=== PATIENT | female | born 1950 | race Caucasian/White ===

== ENCOUNTER 2017-04-13 01:07 | Emergency (ER) | payer OTHER ==
[2017-04-13] MEDS: ATENOLOL 25 MG TAB PO (02:06)
[2017-04-13 02:20] LABS: ADD MAN DIFF? NO
[2017-04-13 02:26] LABS: BASOPHIL # 0.1 10^3/ul (0.0-0.1); BASOPHILS % 0.9 % (0.0-2.0); EOSINOPHILS # 0.1 10^3/ul (0.0-0.5); EOSINOPHILS % 1.5 % (0.0-7.0); HEMATOCRIT 38.8 % (37.0-47.0); HEMOGLOBIN 13.6 g/dl (12.0-16.0); LYMPHOCYTES # 3.3 10^3/ul (0.8-2.9); LYMPHOCYTES % 42.9 % (15.0-51.0); MEAN CORPUSCULAR HEMOGLOBIN 31.8 pg (29.0-33.0); MEAN CORPUSCULAR HGB CONC 35.1 g/dl (32.0-37.0); MEAN CORPUSCULAR VOLUME 90.7 fl (82.0-101.0); MEAN PLATELET VOLUME 9.3 fl (7.4-10.4); MONOCYTE # 0.9 10^3/ul (0.3-0.9); MONOCYTES % 11.4 % (0.0-11.0); NEUTROPHIL # 3.4 10^3/ul (1.6-7.5); NEUTROPHILS % 43.2 % (39.0-77.0); PLATELET COUNT 261 10^3/UL (140-415); RED BLOOD COUNT 4.28 10^6/ul (4.20-5.40); RED CELL DISTRIBUTION WIDTH 12.2 % (11.5-14.5)
[2017-04-13 02:26] LABS: WHITE BLOOD COUNT 7.8 10^3/ul (4.8-10.8)
[2017-04-13 02:41] LABS: INR 1.09; PROTIME 14.2 Sec (11.9-14.9); PT RATIO 1.1
[2017-04-13 02:42] LABS: PARTIAL THROMBOPLASTIN TIME 36.2 Sec (25.0-35.0)
[2017-04-13 02:52] LABS: ANION GAP 13 (8-16); BLOOD UREA NITROGEN 16 mg/dl (7-20); CALCIUM 9.7 mg/dl (8.4-10.2); CARBON DIOXIDE 25 mmol/L (21-31); CHLORIDE 107 mmol/L (97-110); CREATININE 0.75 mg/dl (0.44-1.00); GLUCOSE 105 mg/dl (70-220); POTASSIUM 3.8 mmol/L (3.5-5.1); SODIUM 141 mmol/L (135-144)
[2017-04-13] MEDS: SOD CHLORIDE 0.9% 1,000 ML IV (02:55)
[2017-04-13 03:02] LABS: B-TYPE NATRIURETIC PEPTIDE 205 PG/ML (0-125); TROPONIN-I < 0.012 ng/ml (0.00-0.12)
== END 2017-04-13 05:32 | disposition home or self-care (01) ==
LOC: E/R 01:07
DX: I48.91 Unspecified atrial fibrillation (principal); R40.2252 Coma scale, best verbal response, oriented, at arrival to emergency department; I25.10 Atherosclerotic heart disease of native coronary artery without angina pectoris; I10 Essential (primary) hypertension; R40.2142 Coma scale, eyes open, spontaneous, at arrival to emergency department; R40.2362 Coma scale, best motor response, obeys commands, at arrival to emergency department; Z98.61 Coronary angioplasty status; Z95.0 Presence of cardiac pacemaker; Z87.891 Personal history of nicotine dependence
CPT/HCPCS: 36415; 71045; 80048; 83880; 84443; 84484; 85025; 85610; 85730; 93005; 99285-25

== ENCOUNTER 2017-05-09 23:32 | Emergency (ER) | payer OTHER ==
[2017-05-10] MEDS: SOD CHLORIDE 0.9% 1,000 ML IV (00:31)
[2017-05-10] MEDS: LIDOCAINE/MYLANTA 40 ML BTL PO (00:33)
[2017-05-10] MEDS: ONDANSETRON 4 MG INJ IV (00:33)
[2017-05-10 00:39] LABS: INR 1.18; PROTIME 15.2 Sec (11.9-14.9); PT RATIO 1.2
[2017-05-10 00:40] LABS: PARTIAL THROMBOPLASTIN TIME 37.8 Sec (25.0-35.0)
[2017-05-10] MEDS: ASPIRIN 325 MG TAB PO (01:50)
[2017-05-10 04:01] LABS: ADD MAN DIFF? NO
[2017-05-10 04:10] LABS: ANION GAP 18 (8-16); BLOOD UREA NITROGEN 16 mg/dl (7-20); CALCIUM 9.4 mg/dl (8.4-10.2); CARBON DIOXIDE 26 mmol/L (21-31); CHLORIDE 104 mmol/L (97-110); CREATININE 0.84 mg/dl (0.44-1.00); GLUCOSE 85 mg/dl (70-220); POTASSIUM 3.9 mmol/L (3.5-5.1); SODIUM 144 mmol/L (135-144)
[2017-05-10 04:11] LABS: BASOPHIL # 0.1 10^3/ul (0.0-0.1); BASOPHILS % 0.8 % (0.0-2.0); EOSINOPHILS # 0.1 10^3/ul (0.0-0.5); EOSINOPHILS % 1.3 % (0.0-7.0); HEMATOCRIT 38.4 % (37.0-47.0); HEMOGLOBIN 13.1 g/dl (12.0-16.0); LYMPHOCYTES # 1.3 10^3/ul (0.8-2.9); LYMPHOCYTES % 21.9 % (15.0-51.0); MEAN CORPUSCULAR HGB CONC 34.1 g/dl (32.0-37.0); MEAN PLATELET VOLUME 9.6 fl (7.4-10.4); MONOCYTES % 16.1 % (0.0-11.0); NEUTROPHIL # 3.6 10^3/ul (1.6-7.5); NEUTROPHILS % 59.7 % (39.0-77.0); PLATELET COUNT 252 10^3/UL (140-415); RED BLOOD COUNT 4.22 10^6/ul (4.20-5.40); RED CELL DISTRIBUTION WIDTH 12.1 % (11.5-14.5)
[2017-05-10 04:22] LABS: B-TYPE NATRIURETIC PEPTIDE 234 PG/ML (0-125)
[2017-05-10 04:32] LABS: TROPONIN-I < 0.012 ng/ml (0.00-0.12)
== END 2017-05-10 06:23 | disposition home or self-care (01) ==
LOC: E/R 23:32
DX: R07.9 Chest pain, unspecified (principal); R06.02 Shortness of breath
CPT/HCPCS: 36415; 71045; 80048; 83880; 84484; 85025; 85610; 85730; 93005; 96374; 99285-25

== ENCOUNTER 2017-05-17 11:34 | Emergency (ER) | payer OTHER ==
[2017-05-17] MEDS: IPRATROPIUM (NEB) 0.5 MG/2.5 ML AMP HHN (12:54)
[2017-05-17] MEDS: ALBUTEROL 0.083% (NEB) 2.5 MG/3 ML AMP HHN (12:54)
== END 2017-05-17 14:01 | disposition home or self-care (01) ==
LOC: FTE 11:34
DX: J06.9 Acute upper respiratory infection, unspecified (principal); R06.02 Shortness of breath
CPT/HCPCS: 71045; 94664; 99284-25

== ENCOUNTER 2017-11-16 17:08 | Emergency (ER) | payer OTHER ==
[2017-11-16 17:34] LABS: ADD MAN DIFF? NO
[2017-11-16 17:37] LABS: BASOPHIL # 0.1 10^3/ul (0.0-0.1); BASOPHILS % 0.8 % (0.0-2.0); EOSINOPHILS # 0.1 10^3/ul (0.0-0.5); EOSINOPHILS % 1.4 % (0.0-7.0); HEMATOCRIT 41.2 % (37.0-47.0); HEMOGLOBIN 14.1 g/dl (12.0-16.0); LYMPHOCYTES # 3.3 10^3/ul (0.8-2.9); LYMPHOCYTES % 42.9 % (15.0-51.0); MEAN CORPUSCULAR HEMOGLOBIN 31.1 pg (29.0-33.0); MEAN CORPUSCULAR HGB CONC 34.2 g/dl (32.0-37.0); MEAN CORPUSCULAR VOLUME 90.7 fl (82.0-101.0); MEAN PLATELET VOLUME 9.2 fl (7.4-10.4); MONOCYTE # 0.9 10^3/ul (0.3-0.9); MONOCYTES % 12.1 % (0.0-11.0); NEUTROPHIL # 3.3 10^3/ul (1.6-7.5); NEUTROPHILS % 42.5 % (39.0-77.0); PLATELET COUNT 308 10^3/UL (140-415); RED BLOOD COUNT 4.54 10^6/ul (4.20-5.40); RED CELL DISTRIBUTION WIDTH 12.1 % (11.5-14.5)
[2017-11-16 17:37] LABS: WHITE BLOOD COUNT 7.8 10^3/ul (4.8-10.8)
[2017-11-16] MEDS: DILTIAZEM 25 MG INJ IV (17:45)
[2017-11-16] MEDS: SOD CHLORIDE 0.9% 500 ML IV (17:46)
[2017-11-16] MEDS: ASPIRIN 81 MG TAB PO (17:46)
[2017-11-16 17:57] LABS: ALBUMIN/GLOBULIN RATIO 0.88; ANION GAP 14 (8-16); BILIRUBIN,TOTAL 0.3 mg/dl (0.2-1.3)
[2017-11-16 17:58] LABS: CARBON DIOXIDE 28 mmol/L (21-31); CHLORIDE 104 mmol/L (97-110); GLUCOSE 94 mg/dl (70-220); INR 1.01; PROTIME 13.4 Sec (11.9-14.9); SODIUM 142 mmol/L (135-144)
[2017-11-16 17:59] LABS: ALANINE AMINOTRANSFERASE 31 IU/L (13-69); ALBUMIN 3.9 g/dl (3.3-4.9); ALKALINE PHOSPHATASE 109 IU/L (42-121); ASPARTATE AMINO TRANSFERASE 31 IU/L (15-46); BILIRUBIN,INDIRECT 0.3 mg/dl (0-1.1); BLOOD UREA NITROGEN 25 mg/dl (7-20); CALCIUM 10.2 mg/dl (8.4-10.2); CREATININE 0.99 mg/dl (0.44-1.00); LIPASE 306 U/L (23-300); PARTIAL THROMBOPLASTIN TIME 35.9 Sec (23.0-35.0); TOTAL PROTEIN 8.3 g/dl (6.1-8.1)
[2017-11-16 18:09] LABS: B-TYPE NATRIURETIC PEPTIDE 326 PG/ML (0-125); TROPONIN-I < 0.012 ng/ml (0.000-0.120)
== END 2017-11-16 20:04 | disposition home or self-care (01) ==
LOC: E/R 20:04
DX: I48.91 Unspecified atrial fibrillation (principal); E86.0 Dehydration
CPT/HCPCS: 36415; 71045; 80053; 83690; 83880; 84484; 85025; 85610; 85730; 93005; 96374; 99291-25

== ENCOUNTER 2017-11-20 11:48 | Emergency (ER) | payer OTHER ==
[2017-11-20 12:56] LABS: ADD MAN DIFF? NO
[2017-11-20 12:59] LABS: BASOPHIL # 0.1 10^3/ul (0.0-0.1); BASOPHILS % 0.7 % (0.0-2.0); EOSINOPHILS # 0.1 10^3/ul (0.0-0.5); EOSINOPHILS % 1.3 % (0.0-7.0); HEMATOCRIT 42.4 % (37.0-47.0); HEMOGLOBIN 14.6 g/dl (12.0-16.0); LYMPHOCYTES # 2.9 10^3/ul (0.8-2.9); LYMPHOCYTES % 42.3 % (15.0-51.0); MEAN CORPUSCULAR HEMOGLOBIN 30.8 pg (29.0-33.0); MEAN CORPUSCULAR HGB CONC 34.4 g/dl (32.0-37.0); MEAN CORPUSCULAR VOLUME 89.5 fl (82.0-101.0); MEAN PLATELET VOLUME 9.3 fl (7.4-10.4); MONOCYTE # 0.6 10^3/ul (0.3-0.9); MONOCYTES % 9.3 % (0.0-11.0); NEUTROPHIL # 3.1 10^3/ul (1.6-7.5); NEUTROPHILS % 46.3 % (39.0-77.0); PLATELET COUNT 324 10^3/UL (140-415); RED BLOOD COUNT 4.74 10^6/ul (4.20-5.40)
[2017-11-20 12:59] LABS: WHITE BLOOD COUNT 6.8 10^3/ul (4.8-10.8)
[2017-11-20] MEDS: morphine 4 MG/ML VIAL IV (13:22)
[2017-11-20 13:23] LABS: ALANINE AMINOTRANSFERASE 19 IU/L (13-69); ALBUMIN 4.5 g/dl (3.3-4.9); ALKALINE PHOSPHATASE 116 IU/L (42-121); ANION GAP 13 (8-16); ASPARTATE AMINO TRANSFERASE 27 IU/L (15-46); BILIRUBIN,INDIRECT 0.4 mg/dl (0-1.1); BILIRUBIN,TOTAL 0.4 mg/dl (0.2-1.3); BLOOD UREA NITROGEN 20 mg/dl (7-20); CALCIUM 9.9 mg/dl (8.4-10.2); CARBON DIOXIDE 28 mmol/L (21-31); CHLORIDE 105 mmol/L (97-110); CREATININE 0.92 mg/dl (0.44-1.00); GLUCOSE 99 mg/dl (70-220); LIPASE 188 U/L (23-300); POTASSIUM 4.2 mmol/L (3.5-5.1); SODIUM 142 mmol/L (135-144)
[2017-11-20] MEDS: ONDANSETRON 4 MG INJ IV (13:23)
[2017-11-20] MEDS: NALOXONE (0.4 MG/ML) INJ IV (15:12)
[2017-11-20] MEDS: KETOROLAC 30 MG INJ IV (15:12)
[2017-11-20 15:33] LABS: ADD UMIC NO; UR ASCORBIC ACID NEGATIVE (NEGATIVE); UR BILIRUBIN (Dip) NEGATIVE (NEGATIVE); UR BLOOD (Dip) NEGATIVE (NEGATIVE); UR CLARITY CLEAR (CLEAR); UR COLOR STRAW (YELLOW); UR GLUCOSE (Dip) NEGATIVE (NEGATIVE); UR KETONES (Dip) NEGATIVE (NEGATIVE); UR LEUKOCYTE ESTERASE (Dip) NEGATIVE Leu/ul (NEGATIVE); UR NITRITE (Dip) NEGATIVE (NEGATIVE); UR SPECIFIC GRAVITY (Dip) 1.005 (1.003-1.030); UR TOTAL PROTEIN (Dip) NEGATIVE (NEGATIVE); UR UROBILINOGEN (Dip) NEGATIVE (NEGATIVE)
== END 2017-11-20 15:49 | disposition home or self-care (01) ==
LOC: E/R 11:48
DX: R10.12 Left upper quadrant pain (principal); R40.2142 Coma scale, eyes open, spontaneous, at arrival to emergency department; R40.2362 Coma scale, best motor response, obeys commands, at arrival to emergency department; R40.2252 Coma scale, best verbal response, oriented, at arrival to emergency department; I10 Essential (primary) hypertension; Z79.01 Long term (current) use of anticoagulants; Z98.61 Coronary angioplasty status
CPT/HCPCS: 36415; 74176; 80053; 81003; 83690; 85025; 93005; 96374; 96375; 99285-25

== ENCOUNTER 2018-06-11 14:24 | Emergency (ER) | payer OTHER ==
[2018-06-11] MEDS ORDERED: morphine 4 MG/ML VIAL IV (16:09)
[2018-06-11 16:37] LABS: ADD MAN DIFF? NO
[2018-06-11 16:38] LABS: BASOPHIL # 0.1 10^3/ul (0.0-0.1); BASOPHILS % 0.6 % (0.0-2.0); EOSINOPHILS # 0.1 10^3/ul (0.0-0.5); EOSINOPHILS % 1.2 % (0.0-7.0); HEMATOCRIT 41.6 % (37.0-47.0); HEMOGLOBIN 14.2 g/dl (12.0-16.0); LYMPHOCYTES # 2.7 10^3/ul (0.8-2.9); LYMPHOCYTES % 26.8 % (15.0-51.0); MEAN CORPUSCULAR HGB CONC 34.1 g/dl (32.0-37.0); MEAN CORPUSCULAR VOLUME 90.8 fl (82.0-101.0); MONOCYTE # 0.9 10^3/ul (0.3-0.9); MONOCYTES % 9.1 % (0.0-11.0); NEUTROPHIL # 6.2 10^3/ul (1.6-7.5); PLATELET COUNT 277 10^3/UL (140-415); RED BLOOD COUNT 4.58 10^6/ul (4.20-5.40)
[2018-06-11] MEDS: ONDANSETRON 4 MG INJ IV (16:43)
[2018-06-11] MEDS: KETOROLAC 30 MG INJ IV (16:44)
[2018-06-11] MEDS: SOD CHLORIDE 0.9% 1,000 ML IV (16:44)
[2018-06-11 16:54] LABS: ADD UMIC YES; UR ASCORBIC ACID NEGATIVE (NEGATIVE); UR BILIRUBIN (Dip) NEGATIVE (NEGATIVE); UR BLOOD (Dip) NEGATIVE (NEGATIVE); UR CLARITY CLEAR (CLEAR); UR COLOR STRAW (YELLOW); UR GLUCOSE (Dip) NEGATIVE (NEGATIVE); UR KETONES (Dip) NEGATIVE (NEGATIVE); UR LEUKOCYTE ESTERASE (Dip) TRACE Leu/ul (NEGATIVE); UR NITRITE (Dip) NEGATIVE (NEGATIVE); UR RBC 0 /HPF (0-5); UR SPECIFIC GRAVITY (Dip) 1.004 (1.003-1.030); UR SQUAMOUS EPITHELIAL CELL FEW /HPF (FEW); UR TOTAL PROTEIN (Dip) NEGATIVE (NEGATIVE); UR UROBILINOGEN (Dip) NEGATIVE (NEGATIVE); UR WBC 3 /HPF (0-5)
[2018-06-11 17:19] LABS: ALANINE AMINOTRANSFERASE 21 IU/L (13-69); ALBUMIN 4.4 g/dl (3.3-4.9); ALKALINE PHOSPHATASE 103 IU/L (42-121); ANION GAP 7 (5-13); ASPARTATE AMINO TRANSFERASE 30 IU/L (15-46); BILIRUBIN,INDIRECT 0.2 mg/dl (0-1.1); BILIRUBIN,TOTAL 0.2 mg/dl (0.2-1.3); BLOOD UREA NITROGEN 15 mg/dl (7-20); CALCIUM 10.4 mg/dl (8.4-10.2); CARBON DIOXIDE 28 mmol/L (21-31); CHLORIDE 105 mmol/L (97-110); CREATININE 0.84 mg/dl (0.44-1.00); Estimated GFR > 60 mL/min (>60); GLUCOSE 88 mg/dl (70-220); LIPASE 219 U/L (23-300); POTASSIUM 4.4 mmol/L (3.5-5.1); SODIUM 140 mmol/L (135-144); TOTAL PROTEIN 8.4 g/dl (6.1-8.1)
== END 2018-06-11 19:21 | disposition home or self-care (01) ==
LOC: E/R 14:24
DX: R10.13 Epigastric pain (principal); I10 Essential (primary) hypertension; R11.0 Nausea; Z98.61 Coronary angioplasty status
CPT/HCPCS: 36415; 74176; 80053; 81001; 83690; 85025; 96374; 96375; 99285-25

== ENCOUNTER 2018-08-01 19:01 | Inpatient (IN) | payer OTHER ==
[2018-08-01 19:29] LABS: ADD MAN DIFF? NO
[2018-08-01 19:32] LABS: BASOPHIL # 0.1 10^3/ul (0.0-0.1); BASOPHILS % 0.8 % (0.0-2.0); EOSINOPHILS # 0.2 10^3/ul (0.0-0.5); HEMATOCRIT 41.9 % (37.0-47.0); LYMPHOCYTES # 3.2 10^3/ul (0.8-2.9); LYMPHOCYTES % 43.5 % (15.0-51.0); MEAN CORPUSCULAR HEMOGLOBIN 30.3 pg (29.0-33.0); MEAN CORPUSCULAR HGB CONC 33.4 g/dl (32.0-37.0); MEAN CORPUSCULAR VOLUME 90.7 fl (82.0-101.0); MEAN PLATELET VOLUME 9.1 fl (7.4-10.4); MONOCYTE # 0.9 10^3/ul (0.3-0.9); MONOCYTES % 11.8 % (0.0-11.0); NEUTROPHIL # 3.1 10^3/ul (1.6-7.5); NEUTROPHILS % 41.8 % (39.0-77.0); PLATELET COUNT 286 10^3/UL (140-415); RED BLOOD COUNT 4.62 10^6/ul (4.20-5.40); RED CELL DISTRIBUTION WIDTH 12.3 % (11.5-14.5)
[2018-08-01 19:32] LABS: WHITE BLOOD COUNT 7.4 10^3/ul (4.8-10.8)
[2018-08-01 19:53] LABS: ANION GAP 8 (5-13); BLOOD UREA NITROGEN 17 mg/dl (7-20); CALCIUM 9.4 mg/dl (8.4-10.2); CARBON DIOXIDE 26 mmol/L (21-31); CHLORIDE 108 mmol/L (97-110); CREATININE 0.82 mg/dl (0.44-1.00); Estimated GFR > 60 mL/min (>60); GLUCOSE 103 mg/dl (70-220); SODIUM 142 mmol/L (135-144)
[2018-08-01 20:04] LABS: TROPONIN-I < 0.012 ng/ml (0.000-0.120)
[2018-08-01] MEDS ORDERED: ONDANSETRON 4 MG INJ IV (20:30)
[2018-08-01] MEDS ORDERED: ACETAMINOPHEN 325 MG TAB PO ×2 (20:30→21:00)
[2018-08-01] MEDS: METOPROLOL 5 MG INJ IV (20:59)
[2018-08-01] MEDS: METOPROLOL 50 MG TAB PO (20:59)
[2018-08-01] MEDS: SOD CHLORIDE 0.9% 1,000 ML IV (20:59)
[2018-08-01] MEDS ORDERED: DOCUSATE SODIUM 100 MG CAP PO (21:00)
[2018-08-01] MEDS ORDERED: ONDANSETRON 4 MG TAB PO (21:00)
[2018-08-01] MEDS ORDERED: BISACODYL (EC) 5 MG TAB PO (21:00)
[2018-08-01] MEDS ORDERED: NITROGLYCERIN (SL) 0.4 MG TAB SL (21:00)
[2018-08-01] MEDS ORDERED: NACL 0.9% 3 ML SYG IV (21:00)
[2018-08-01 21:29] LABS: MAGNESIUM 2.1 mg/dl (1.7-2.5)
[2018-08-01] MEDS: APIXABAN 5 MG TABLET PO (22:29)
[2018-08-01] MEDS: MAGNESIUM SULFATE 2 GM/50 ML 50 ML IVPB (22:30)
[2018-08-01] MEDS: ATENOLOL 50 MG TAB PO (22:31)
[2018-08-02 00:59] LABS: CREATINE KINASE 40 IU/L (23-200)
[2018-08-02 01:11] LABS: CK INDEX 0.9; CK-MB 0.35 ng/ml (0.0-2.4); TROPONIN-I < 0.012 ng/ml (0.000-0.120)
[2018-08-02] MEDS: PANTOPRAZOLE SODIUM 20 MG TABEC PO (05:55)
[2018-08-02] MEDS: METOPROLOL 5 MG INJ IV ×2 (06:10)
[2018-08-02 07:54] LABS: ADD MAN DIFF? NO
[2018-08-02 07:58] LABS: BASOPHILS % 0.6 % (0.0-2.0); EOSINOPHILS # 0.1 10^3/ul (0.0-0.5); EOSINOPHILS % 1.7 % (0.0-7.0); HEMATOCRIT 36.3 % (37.0-47.0); HEMOGLOBIN 12.1 g/dl (12.0-16.0); LYMPHOCYTES # 2.6 10^3/ul (0.8-2.9); MEAN CORPUSCULAR HEMOGLOBIN 30.5 pg (29.0-33.0); MEAN CORPUSCULAR HGB CONC 33.3 g/dl (32.0-37.0); MEAN CORPUSCULAR VOLUME 91.4 fl (82.0-101.0); MEAN PLATELET VOLUME 9.3 fl (7.4-10.4); MONOCYTE # 0.6 10^3/ul (0.3-0.9); NEUTROPHIL # 3.7 10^3/ul (1.6-7.5); NEUTROPHILS % 51.6 % (39.0-77.0); PLATELET COUNT 243 10^3/UL (140-415); RED BLOOD COUNT 3.97 10^6/ul (4.20-5.40); RED CELL DISTRIBUTION WIDTH 12.2 % (11.5-14.5)
[2018-08-02 07:58] LABS: WHITE BLOOD COUNT 7.1 10^3/ul (4.8-10.8)
[2018-08-02 08:14] LABS: HEMOGLOBIN A1C 5.3 % (0-5.9)
[2018-08-02 08:24] LABS: CREATINE KINASE 37 IU/L (23-200)
[2018-08-02] MEDS: APIXABAN 5 MG TABLET PO (08:30)
[2018-08-02] MEDS: ATENOLOL 50 MG TAB PO (08:32)
[2018-08-02 08:33] LABS: CK INDEX 0.7; CK-MB 0.26 ng/ml (0.0-2.4); TROPONIN-I < 0.012 ng/ml (0.000-0.120)
[2018-08-02 08:35] LABS: ALANINE AMINOTRANSFERASE 28 IU/L (13-69); ALBUMIN 3.7 g/dl (3.3-4.9); ALBUMIN/GLOBULIN RATIO 1.19; ALKALINE PHOSPHATASE 100 IU/L (42-121); ANION GAP 7 (5-13); ASPARTATE AMINO TRANSFERASE 26 IU/L (15-46); BILIRUBIN,INDIRECT 0.5 mg/dl (0-1.1); BILIRUBIN,TOTAL 0.5 mg/dl (0.2-1.3); BLOOD UREA NITROGEN 12 mg/dl (7-20); CALCIUM 8.9 mg/dl (8.4-10.2); CARBON DIOXIDE 24 mmol/L (21-31); CHLORIDE 110 mmol/L (97-110); CHOL/HDL RATIO 3.8 RATIO; CHOLESTEROL 157 mg/dl (100-200); CREATININE 0.73 mg/dl (0.44-1.00); Estimated GFR > 60 mL/min (>60); GLUCOSE 117 mg/dl (70-220); HDL CHOLESTEROL 41 mg/dl (33-92); LDL CHOLESTEROL,CALCULATED 77 mg/dl; MAGNESIUM 2.2 mg/dl (1.7-2.5); POTASSIUM 3.9 mmol/L (3.5-5.1); SODIUM 141 mmol/L (135-144); TOTAL PROTEIN 6.8 g/dl (6.1-8.1); TRIGLYCERIDES 196 mg/dl (0-149)
[2018-08-02] MEDS ORDERED: RANITIDINE 150 MG TAB PO (21:00)
== END 2018-08-02 18:43 | disposition home or self-care (01) | DRG 310 ==
LOC: E/R 19:01 → TEL 20:26
DX: I48.0 Paroxysmal atrial fibrillation (principal); I10 Essential (primary) hypertension; I25.10 Atherosclerotic heart disease of native coronary artery without angina pectoris; K21.9 Gastro-esophageal reflux disease without esophagitis; Z79.01 Long term (current) use of anticoagulants; Z87.891 Personal history of nicotine dependence; Z95.0 Presence of cardiac pacemaker
CPT/HCPCS: 36415; 71045; 80048; 80053; 80061; 82550; 82553; 83036; 83735; 84443; 84484; 85025; 93005; 93306; 99285-25

== ENCOUNTER 2018-09-23 16:29 | Emergency (ER) | payer OTHER ==
[2018-09-23] MEDS: LIDOCAINE/MYLANTA 40 ML BTL PO (18:46)
[2018-09-23] MEDS: KETOROLAC 30 MG INJ IV (18:46)
[2018-09-23 18:47] LABS: ADD MAN DIFF? NO
[2018-09-23 18:49] LABS: WHITE BLOOD COUNT 7.4 10^3/ul (4.8-10.8)
[2018-09-23 18:49] LABS: BASOPHILS % 0.3 % (0.0-2.0); EOSINOPHILS # 0.2 10^3/ul (0.0-0.5); EOSINOPHILS % 2.3 % (0.0-7.0); HEMATOCRIT 37.4 % (37.0-47.0); HEMOGLOBIN 12.7 g/dl (12.0-16.0); LYMPHOCYTES # 2.8 10^3/ul (0.8-2.9); LYMPHOCYTES % 37.4 % (15.0-51.0); MEAN CORPUSCULAR HEMOGLOBIN 30.8 pg (29.0-33.0); MEAN CORPUSCULAR VOLUME 90.6 fl (82.0-101.0); MEAN PLATELET VOLUME 8.6 fl (7.4-10.4); MONOCYTE # 0.7 10^3/ul (0.3-0.9); MONOCYTES % 8.7 % (0.0-11.0); NEUTROPHIL # 3.8 10^3/ul (1.6-7.5); PLATELET COUNT 240 10^3/UL (140-415); RED BLOOD COUNT 4.13 10^6/ul (4.20-5.40); RED CELL DISTRIBUTION WIDTH 12.3 % (11.5-14.5)
[2018-09-23 19:14] LABS: ALANINE AMINOTRANSFERASE 17 IU/L (13-69); ALBUMIN 3.8 g/dl (3.3-4.9); ALKALINE PHOSPHATASE 84 IU/L (42-121); ANION GAP 7 (5-13); ASPARTATE AMINO TRANSFERASE 25 IU/L (15-46); BILIRUBIN,INDIRECT 0.7 mg/dl (0-1.1); BILIRUBIN,TOTAL 0.7 mg/dl (0.2-1.3); BLOOD UREA NITROGEN 15 mg/dl (7-20); CALCIUM 9.1 mg/dl (8.4-10.2); CARBON DIOXIDE 26 mmol/L (21-31); CHLORIDE 105 mmol/L (97-110); CREATININE 1.01 mg/dl (0.44-1.00); Estimated GFR 54 mL/min (>60); GLUCOSE 105 mg/dl (70-220); LIPASE 114 U/L (23-300); SODIUM 138 mmol/L (135-144); TOTAL PROTEIN 7.6 g/dl (6.1-8.1)
[2018-09-23 19:15] LABS: POTASSIUM 3.7 mmol/L (3.5-5.1)
[2018-09-23 19:44] LABS: TROPONIN-I < 0.012 ng/ml (0.000-0.120)
== END 2018-09-23 20:31 | disposition home or self-care (01) ==
LOC: E/R 20:31
DX: R10.13 Epigastric pain (principal); I10 Essential (primary) hypertension; Z98.61 Coronary angioplasty status; Z79.01 Long term (current) use of anticoagulants
CPT/HCPCS: 36415; 80053; 83690; 84484; 85025; 93005; 96374; 99284-25